=== PATIENT | female | born 1955 | race Caucasian/White ===

== ENCOUNTER 2023-05-21 09:21 | Outpatient (CLI) | payer MEDICARE, BC | END 2023-05-21 09:22 | disposition home or self-care (01) | LOC: ULT 09:21 | PROVIDERS: ATTEND Nurse Practitioner Family | DX: M79.661 Pain in right lower leg (principal); I82.431 Acute embolism and thrombosis of right popliteal vein; I82.441 Acute embolism and thrombosis of right tibial vein ==

== ENCOUNTER 2025-03-25 20:35 | Emergency (ER) | payer MEDICARE | END 2025-03-25 23:45 | disposition home or self-care (01) | LOC: ERS 20:35 | DX: M79.605 Pain in left leg (principal); E78.5 Hyperlipidemia, unspecified; Z79.899 Other long term (current) drug therapy ==